=== PATIENT | female | born 1980 | race Caucasian/White ===

== ENCOUNTER 2020-02-14 18:58 | Emergency (ER) | payer OTHER, SELFPAY ==
[2020-02-14 19:09] VITALS: BP 109/68; PULSE 101; RESP 18; TEMP 36.8; O2SAT 100; BMI 29.7
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
[2020-02-14 19:50] LABS: MANUAL DIFF FLAG NO
[2020-02-14 19:54] LABS: Basophils Percent Auto 0.4 % (0-2); Eosinophils Absolute Auto 0.1 X10*3/uL (0.0-0.4); Eosinophils Percent Auto 1.8 % (0-4); Hemoglobin 13.2 g/dl (12.0-16.0); Imm Gran Abs Auto 0.01 X10*3/uL (0.00-0.03); Imm Gran Pct Auto 0.2 % (0.0-0.4); Lymphocytes Absolute Auto 1.7 X10*3/uL (1.2-4.9); Lymphocytes Percent Auto 36.7 % (20-40); Mean Corpuscular HGB Conc 34.7 g/dl (31.0-35.0); Mean Corpuscular Volume 92.2 fL (80-98); Monocytes Absolute Auto 0.3 X10*3/uL (0.1-1.2); Monocytes Percent Auto 7.5 % (2-11); Neutrophils Absolute Auto 2.4 X10*3/uL (2.0-8.3); Neutrophils Percent Auto 53.4 % (45-73); Platelet Count 255 X10*3/uL (160-400); Red Blood Count 4.12 X10*6/uL (4.20-5.50); Red Cell Distribution Width 11.9 % (11.0-16.0); White Blood Count 4.5 X10*3/uL (4.8-10.8)
[2020-02-14 20:00] VITALS: BP 96/63; PULSE 76; RESP 18; O2SAT 100
[2020-02-14 20:08] LABS: Ethanol 236 mg/dL
[2020-02-14 20:14] LABS: Anion Gap 13 (12-20); Blood Urea Nitrogen 10 mg/dL (9-16); Calcium 8.8 mg/dL (8.4-10.2); Carbon Dioxide 24 mmol/L (22-29); Chloride 108 mmol/L (96-108); Creatinine Clr Calc Pharmacy 63.5; Estimated Glomerular Filt Rate 54; Glucose Random 114 mg/dL (60-115); Potassium 4.2 mmol/l (3.3-5.1); Sodium 141 mmol/L (135-145)
[2020-02-14 20:22] LABS: HCG Quantitative < 2 mIU/mL
[2020-02-14] MEDS: iohexoL 350 MG/ML 100 ML INFUS..BTL IV (21:59)
[2020-02-14 23:25] VITALS: BP 100/58; PULSE 99; RESP 16; TEMP 37.1; O2SAT 97
== END 2020-02-15 01:14 | disposition home or self-care (01) ==
PROVIDERS: Emergency Provider Emergency Medicine; PCP Internal Medicine
DX: S09.90XA Unspecified injury of head, initial encounter (principal); M54.2 Cervicalgia; R41.82 Altered mental status, unspecified; G44.309 Post-traumatic headache, unspecified, not intractable; R10.9 Unspecified abdominal pain; F10.920 Alcohol use, unspecified with intoxication, uncomplicated; M54.6 Pain in thoracic spine; V47.5XXA Car driver injured in collision with fixed or stationary object in traffic accident, initial encounter; Y93.9 Activity, unspecified; Y92.410 Unspecified street and highway as the place of occurrence of the external cause; Y99.9 Unspecified external cause status
CPT/HCPCS: 36415; 70450; 71260; 72125; 74177; 80048; 80320; 84702; 85025; 99284; Q9967